=== PATIENT | male | born 1990 | race Caucasian/White ===

== ENCOUNTER → 2018-10-31 | Outpatient (CLI) | payer SELFPAY | LOC: COL.RAD 09:35 | DX: K76.0 Fatty (change of) liver, not elsewhere classified (principal) ==

== ENCOUNTER → 2019-04-30 | Outpatient (CLI) | payer SELFPAY ==
[2019-04-30 10:33] LABS: BASO # 0.1 (0.0-0.2); BASO % 0.6 % (0.0-2.0); EOS # 0.3 (0.0-0.7); EOS % 3.1 % (0-4.0); GRAN # 5.6 (1.4-6.5); GRAN % 61.5 % (42.2-75.2); HEMATOCRIT 46.8 % (42.0-52.0); HEMOGLOBIN 15.9 g/dl (13.5-18.0); LYMPH # 2.5 (1.2-3.4); MEAN CELL VOLUME 85 fl (80.0-100.0); MEAN CORPUSCULAR HEMOGLOBIN 29 pg (27.0-31.0); MEAN CORPUSCULAR HGB CONC 34 g/dl (33.0-37.0); MEAN PLATELET VOLUME 8.5 fl (7.4-10.4); MONO # 0.7 (0.1-0.6); MONO % 7.5 % (1.7-9.3); PLATELET COUNT 257 K/mm3 (130-400); RED BLOOD COUNT 5.53 M/mm3 (4.20-5.60); REDCELL DISTRIBUTION WIDTH-CV 12.8 % (11.5-14.5)
[2019-04-30 10:40] LABS: ALBUMIN 4.6 gm/dL (3.5-5.0); BILIRUBIN,TOTAL 0.5 mg/dL (0.0-1.0); CALCIUM 9.3 mg/dL (8.4-10.2); CREATININE, serum 0.78 (0.66-1.25); POTASSIUM 3.9 mmol/L (3.4-5.0); TOTAL PROTEIN 7.7 gm/dL (6.4-8.2)
== END ==
LOC: COL.LAB 10:01
PROVIDERS: Registered Nurse
DX: K76.0 Fatty (change of) liver, not elsewhere classified (principal); R10.11 Right upper quadrant pain; D72.1 Eosinophilia

== ENCOUNTER 2019-05-22 16:52 | Emergency (ER) | payer SELFPAY ==
[~2019-05-22] VITALS: Ht 165.1 cm; Wt 68.0 kg
[2019-05-22 17:07] VITALS: BP 121/73
[2019-05-22 19:31] LABS: BASO # 0.1 (0.0-0.2); BASO % 0.3 % (0.0-2.0); EOS # 0.1 (0.0-0.7); EOS % 0.9 % (0-4.0); GRAN % 76.4 % (42.2-75.2); HEMATOCRIT 42.9 % (42.0-52.0); HEMOGLOBIN 14.5 g/dl (13.5-18.0); LYMPH # 2.5 (1.2-3.4); LYMPH % 15.6 % (20.0-51.0); MEAN CELL VOLUME 86 fl (80.0-100.0); MEAN CORPUSCULAR HEMOGLOBIN 29 pg (27.0-31.0); MEAN CORPUSCULAR HGB CONC 34 g/dl (33.0-37.0); MEAN PLATELET VOLUME 8.4 fl (7.4-10.4); MONO % 6.4 % (1.7-9.3); PLATELET COUNT 272 K/mm3 (130-400); RED BLOOD COUNT 4.99 M/mm3 (4.20-5.60); REDCELL DISTRIBUTION WIDTH-CV 12.3 % (11.5-14.5)
[2019-05-22 19:44] LABS: ALBUMIN 4.1 gm/dL (3.5-5.0); BILIRUBIN,TOTAL 0.2 mg/dL (0.0-1.0); CREATININE, serum 0.79 (0.66-1.25); POTASSIUM 4.2 mmol/L (3.4-5.0); TOTAL PROTEIN 7.6 gm/dL (6.4-8.2)
[2019-05-22 20:33] VITALS: PULSE 90; TEMP 98.7
== END 2019-05-22 20:30 | disposition home or self-care (01) ==
LOC: COL.ER 16:52
PROVIDERS: Emergency Medicine
DX: L02.31 Cutaneous abscess of buttock (principal); L03.317 Cellulitis of buttock

== ENCOUNTER 2019-10-03 07:23 | Emergency (ER) | payer SELFPAY ==
[~2019-10-03] VITALS: Ht 165.1 cm; Wt 69.1 kg
[2019-10-03 07:27] VITALS: BP 122/68; TEMP 98.5
[2019-10-03 08:32] LABS: COLLECTION METHOD CLEAN CATCH
[2019-10-03 08:36] LABS: BASO # 0.1 (0.0-0.2); BASO % 0.8 % (0.0-2.0); EOS # 0.2 (0.0-0.7); EOS % 2.4 % (0-4.0); GRAN # 4.6 (1.4-6.5); GRAN % 64.4 % (42.2-75.2); HEMATOCRIT 51.9 % (42.0-52.0); HEMOGLOBIN 17.5 g/dl (13.5-18.0); LYMPH % 27.2 % (20.0-51.0); MEAN CELL VOLUME 84 fl (80.0-100.0); MEAN CORPUSCULAR HEMOGLOBIN 28 pg (27.0-31.0); MEAN CORPUSCULAR HGB CONC 34 g/dl (33.0-37.0); MEAN PLATELET VOLUME 8.2 fl (7.4-10.4); MONO # 0.4 (0.1-0.6); MONO % 4.9 % (1.7-9.3); PLATELET COUNT 255 K/mm3 (130-400); RED BLOOD COUNT 6.18 M/mm3 (4.20-5.60); REDCELL DISTRIBUTION WIDTH-CV 12.7 % (11.5-14.5)
[2019-10-03 08:49] LABS: ALANINE AMINOTRANSFERASE 28 U/L (21-72); ALBUMIN 4.9 gm/dL (3.5-5.0); ALKALINE PHOSPHATASE 92 U/L (50-136); ANION GAP 11 mmol/L (7-16); AST,SGOT 28 U/L (15-37); BILIRUBIN,TOTAL 0.5 mg/dL (0.0-1.0); BLOOD UREA NITROGEN 17 mg/dL (9-20); CALCIUM 9.5 mg/dL (8.4-10.2); CARBON DIOXIDE 27 mmol/L (22-30); CHLORIDE 103 mmol/L (98-107); CREATININE, serum 0.86 (0.66-1.25); GLUCOSE 86 mg/dL (74-106); LIPASE 62 U/L (23-300); MUCOUS Present /lpf; PH 5 (5-8); SODIUM 141 mmol/L (137-145); SQUAMOUS EPITHELIAL 0-2 /hpf; TOTAL PROTEIN 8.4 gm/dL (6.4-8.2); URINE APPEARANCE Clear; URINE BACTERIA None Seen /hpf; URINE BILIRUBIN Negative (NEGATIVE); URINE BLOOD Negative (NEGATIVE); URINE COLOR Yellow; URINE GLUCOSE Negative (NEGATIVE); URINE KETONE Negative (NEGATIVE); URINE LEUKOCYTE ESTERASE Negative (NEGATIVE); URINE NITRATE Negative (NEGATIVE); URINE PROTEIN(semi-quant) Negative (NEGATIVE); URINE RBC 0-2 /hpf; URINE UROBILINOGEN Negative (NEGATIVE)
[2019-10-03 08:50] LABS: C-REACTIVE PROTEIN < 0.5 mg/dL (0.0-0.9)
[2019-10-03] MEDS ORDERED: PROTONIX 40MG T40 MG PO (09:06)
[2019-10-03 09:40] VITALS: PULSE 74
== END 2019-10-03 09:42 | disposition home or self-care (01) ==
LOC: COL.ER 07:23
PROVIDERS: Emergency Medicine
DX: R10.11 Right upper quadrant pain (principal)
CPT/HCPCS: C9113; J2270; J2405; J7030

== ENCOUNTER → 2020-03-30 | Outpatient (CLI) | payer SELFPAY ==
[~2020-03-30] MED LIST: PROTONIX 40MG T40 MG PO
[2020-03-30 17:26] LABS: ALBUMIN 4.7 gm/dL (3.5-5.0); BILIRUBIN,TOTAL 0.5 mg/dL (0.0-1.0); CALCIUM 9.5 mg/dL (8.4-10.2); CREATININE, serum 0.88 (0.66-1.25); POTASSIUM 3.5 mmol/L (3.4-5.0); TOTAL PROTEIN 7.7 gm/dL (6.4-8.2)
[2020-03-30 18:22] LABS: HEMATOCRIT 44.6 % (42.0-52.0); HEMOGLOBIN 15.2 g/dl (13.5-18.0); MEAN CELL VOLUME 83 fl (80.0-100.0); MEAN CORPUSCULAR HEMOGLOBIN 28 pg (27.0-31.0); MEAN CORPUSCULAR HGB CONC 34 g/dl (33.0-37.0); MEAN PLATELET VOLUME 8.1 fl (7.4-10.4); PLATELET COUNT 236 K/mm3 (130-400); RED BLOOD COUNT 5.36 M/mm3 (4.20-5.60); REDCELL DISTRIBUTION WIDTH-CV 12.5 % (11.5-14.5)
== END ==
LOC: COL.RAD 16:29 → COL.LAB 16:29
PROVIDERS: Registered Nurse
DX: K76.0 Fatty (change of) liver, not elsewhere classified (principal)
CPT/HCPCS: Q9967

== ENCOUNTER 2020-05-07 09:14 | Day surgery (SDC) | payer SELFPAY ==
[~2020-05-07] VITALS: Ht 167.6 cm; Wt 66.5 kg
[2020-05-07 10:19] VITALS: BP 123/71; PULSE 65; TEMP 98.4
[2020-05-07] MEDS ORDERED: PRIL40 PO (10:35)
[2020-05-07 11:15] VITALS: BP 108/62; PULSE 58; TEMP 97.6
--- NOTE | 2020-05-07 11:15 | NUR ---
Patient brought back to [facility] via cart. Ambulated to chair with one assist. Cousin at bedside to translate for patient. Denies pain or nausea. Requests muffin and water. Lynette AMAYA at bedside for report. Vital signs stable. Warm blanket provided, call rascon within reach. Will continue to monitor.
[2020-05-07 11:30] VITALS: BP 111/73; PULSE 54
--- NOTE | 2020-05-07 11:30 | NUR ---
Patient tolerating food and drink without difficulty. No complaints at this time. Will monitor.
[2020-05-07 11:45] VITALS: BP 107/66; PULSE 55
--- NOTE | 2020-05-07 11:45 | NUR ---
MD at bedside to explain results. Vital signs remain stable. Patient states he feels ready to go home.
--- NOTE | 2020-05-07 11:50 | NUR ---
IV removed without difficulty, intact. Discharge instructions reviewed with cousin and patient. All questions answered. Patient to get dressed at this time.
--- NOTE | 2020-05-07 11:55 | NUR ---
Patient brought down to lobby via wheel chair. Cousin to drive patient home. All belongings in hand.
== END 2020-05-07 11:55 | disposition home or self-care (01) ==
LOC: SDCO 09:14
DX: K21.9 Gastro-esophageal reflux disease without esophagitis (principal); K29.30 Chronic superficial gastritis without bleeding; Z20.828 Contact with and (suspected) exposure to other viral communicable diseases; K76.0 Fatty (change of) liver, not elsewhere classified; Z87.891 Personal history of nicotine dependence
CPT/HCPCS: J2704; J7030

== ENCOUNTER 2020-08-01 01:27 | Emergency (ER) | payer SELFPAY ==
[~2020-08-01] VITALS: Ht 172.7 cm; Wt 70.0 kg
[~2020-08-01 01:27] MED LIST changes: +PRIL40 PO
[2020-08-01 01:38] VITALS: TEMP 97.9
[2020-08-01 02:03] LABS: BASO # 0.1 (0.0-0.2); BASO % 0.6 % (0.0-2.0); EOS # 0.3 (0.0-0.7); EOS % 3.1 % (0-4.0); GRAN # 5.5 (1.4-6.5); GRAN % 52.7 % (42.2-75.2); HEMATOCRIT 48.6 % (42.0-52.0); HEMOGLOBIN 16.8 g/dl (13.5-18.0); LYMPH % 37.8 % (20.0-51.0); MEAN CELL VOLUME 83 fl (80.0-100.0); MEAN CORPUSCULAR HEMOGLOBIN 29 pg (27.0-31.0); MEAN CORPUSCULAR HGB CONC 35 g/dl (33.0-37.0); MEAN PLATELET VOLUME 8.1 fl (7.4-10.4); MONO # 0.6 (0.1-0.6); MONO % 5.5 % (1.7-9.3); PLATELET COUNT 248 K/mm3 (130-400); RED BLOOD COUNT 5.89 M/mm3 (4.20-5.60); REDCELL DISTRIBUTION WIDTH-CV 12.2 % (11.5-14.5)
[2020-08-01 02:13] LABS: ALANINE AMINOTRANSFERASE 21 U/L (4-49); ALBUMIN 4.5 gm/dL (3.5-5.0); ALKALINE PHOSPHATASE 86 U/L (50-136); ANION GAP 11 mmol/L (7-16); AST,SGOT 24 U/L (15-37); BILIRUBIN,TOTAL 0.5 mg/dL (0.0-1.0); BLOOD UREA NITROGEN 15 mg/dL (9-20); CALCIUM 9.1 mg/dL (8.4-10.2); CARBON DIOXIDE 26 mmol/L (22-30); CHLORIDE 101 mmol/L (98-107); CREATININE, serum 0.93 (0.66-1.25); GLUCOSE 127 mg/dL (74-106); SODIUM 138 mmol/L (137-145); TOTAL PROTEIN 7.5 gm/dL (6.4-8.2)
[2020-08-01 02:34] LABS: TROPONIN-I < 0.012 ng/mL (0.000-0.035)
[2020-08-01 02:54] VITALS: BP 120/69; PULSE 70
== END 2020-08-01 03:00 | disposition home or self-care (01) ==
LOC: COL.ER 01:27
PROVIDERS: Emergency Medicine
DX: R00.2 Palpitations (principal); Z20.822 Contact with and (suspected) exposure to COVID-19

== ENCOUNTER → 2020-12-24 | Outpatient (CLI) | payer SELFPAY | LOC: COL.RAD 08:15 | DX: R10.11 Right upper quadrant pain (principal) ==

== ENCOUNTER → 2022-06-06 | Outpatient (CLI) | payer SELFPAY | LOC: COL.RAD 14:42 | DX: J34.2 Deviated nasal septum (principal); J32.9 Chronic sinusitis, unspecified ==